=== PATIENT | female | born 1945 | race Caucasian/White ===

== ENCOUNTER 2016-10-09 10:21 | Emergency (ER) | payer OTHER ==
[~2016-10-09 10:21] MED LIST: Amiodarone 150 MG/3 ML SDV ONE; EPINEPHrine 1:10,000 1 MG/10 ML Syringe ONE; Sodium Bicarbonate 8.4% 50 MEQ/50 ML Syringe ONE
--- NOTE | 2016-10-09 11:09 | PCM.SN ---
- Free Text/Narrative Note: Davon Blue (ED) 10-09-16 Start-1027 End- 1048 Called by ED staff for a code blue at 1019. Arrived at 1027. Upon arrival the patient had the automated CPR machine in place, patent [id number] to left hand, purple deep airway from field with bilateral breath sounds by auscultation per ED physician. Rhythm check revealed PEA with pacer spiked not capturing/ correlating with rhythm. ETCO2, BP cuff, SpO2, and EKG leads placed. Patient has a pacemaker in right upper chest. Epinephrine, amiodarone, and NaHCO3 were all given prior to my arrival. 2 other rounds of Epinephrine were given while I was present and the patient did eventually regain a pulse in the 50's with a blood pressure in the 70's systolically. Pupils were fixed and dilated when the patient regained her pulse. We were informed about a DNR for the patient, so the ED physician spoke with the family after the patient regained her pulse and the family decided to terminate life-saving measures. Patient eventually started getting more bradycardic and hypotensive until a pulse was lost and time of was announced. Please refer to the code blue flow sheet for specific times of all the events. Chaka Travis CRNA
--- NOTE | 2016-10-09 13:58 | EDM.PDOC ---
ED HPI GENERAL MEDICAL PROBLEM - General Chief Complaint: CPR in Progress Stated Complaint: [facility] Time Seen by Provider: 10/09/16 10:46 Source of Information: Reports: EMS, Family History Limitations: Reports: Altered Mental Status - History of Present Illness INITIAL COMMENTS - FREE TEXT/NARRATIVE: The patient was out with her family today. She saw her grand children and went to some [place]. 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 911 was called and she was pulseless and apneac. No CPR was started. When EMS arrived a few minutes later they found she had no pulse and was not breathing. They moved her to their cot and CPR was started. The monitoring tech showed she was in PEA and an IV was started and she was given a total of 3mg of epinephrine IV and sodium bicarb. [facility] in [facility] and Dr Vazquez is her doctor. She has a history of CHF, CAD, cardiac arrhythmia with a pacemaker, chronic kidney disease, anemia, pulmonary hypertension and atrial fibrillation among other diagnoses. Onset: Sudden Duration: Minutes: Improves with: Reports: None Worsens with: Reports: None Associated Symptoms: Reports: No Other Symptoms - Related Data Allergies Allergy/AdvReac Type Severity Reaction Status Date / Time apixaban Allergy Cannot Verified 10/09/16 11:01 Remember aspirin Allergy Cannot Verified 10/09/16 11:02 Remember ibuprofen Allergy Cannot Verified 10/09/16 11:02 Remember Penicillins Allergy Cannot Verified 10/09/16 11:02 Remember Home Meds: Home Meds Acetaminophen [Tylenol] 325 mg PO Q8H PRN 08/22/15 [History] Allopurinol [Zyloprim] 100 mg PO DAILY 08/22/15 [History] Fluticasone Propionate [Flonase] 1 spray NASBOTH BID 08/22/15 [History] Cholecalciferol (Vitamin D3) [Vitamin D] 2,000 unit PO DAILY 01/04/16 [History] Citalopram [Celexa] 20 mg PO BEDTIME 01/04/16 [History] Docusate Sodium [Colace] 200 mg PO BID 01/04/16 [History] Furosemide [Lasix] 120 mg PO BID 01/04/16 [History] Gabapentin [Neurontin] 300 mg PO BEDTIME 01/04/16 [History] Insulin Glarg,Human.Rec.Analog [LantUS Solostar] 94 units SUBCUT DAILY 01/04/16 [History] Insulin Lispro [HumaLOG] 24 unit SUBCUT TIDAC 01/04/16 [History] Iron Aspgly&PS/B12/C/Ca/FA/Suc [Niferex-150 Forte] 1 cap PO DAILY 01/04/16 [ History] Metolazone 2.5 mg PO MOWEFR 01/04/16 [History] Omeprazole 40 mg PO DAILY 01/04/16 [History] Polyethylene Glycol 3350 [Purelax] 142 mg PO DAILY 01/04/16 [History] Rivaroxaban [Xarelto] 15 mg PO DAILY 01/04/16 [History] Simvastatin [Zocor] 20 mg PO BEDTIME 01/04/16 [History] SitaGLIPtin [Januvia] 50 mg PO DAILY 01/04/16 [History] Sucralfate [Carafate] 1 tab PO QIDACANDBED 01/04/16 [History] Valsartan [Diovan] 40 mg PO DAILY 01/04/16 [History] Zolpidem Tartrate [Ambien] 5 mg PO BEDTIME 01/04/16 [History] cloNIDine HCl [Catapres] 0.6 mg PO BID 01/04/16 [History] guaiFENesin/Dextromethorphan [Tussin DM Clear] 10 ml PO Q4H PRN 01/04/16 [ History] hydrALAZINE HCl [Hydralazine HCl] 100 mg PO BID 01/04/16 [History] Past Medical History HEENT History: Reports: Cataract Cardiovascular History: Reports: CAD, Cardiomyopathy, Heart Failure, High Cholesterol, Hypertension, SOB on Exertion Other Cardiovascular History: bradycardia Respiratory History: Reports: Bronchitis, Recurrent, Sleep Apnea, SOB, Other ( See Below) Other Respiratory History: wears CPAP at HS Gastrointestinal History: Reports: GERD, Hemorrhoids Genitourinary History: Reports: Renal Disease Musculoskeletal History: Reports: Back Pain, Chronic, Osteoarthritis Psychiatric History: Reports: Depression Endocrine/Metabolic History: Reports: Diabetes, Type II, Obesity/BMI 30+, Osteoporosis - Infectious Disease History Infectious Disease History: Reports: Chicken Pox, Measles, Mumps - Past Surgical History HEENT Surgical History: Reports: Cataract Surgery, Laser Surgery Musculoskeletal Surgical History: Reports: Shoulder Surgery, Other (See Below) Social & Family History - Tobacco Use Smoking Status *Q: Former Smoker Used Tobacco, but Quit: Yes Month Tobacco Last Used: 20 years - Recreational Drug Use Recreational Drug Use: No - Living Situation & Occupation Living situation: Reports: Single Occupation: Retired ED ROS GENERAL - Review of Systems Review Of Systems: Unable To Obtain ED EXAM, CPR - Physical Exam Exam: See Below Limited By: Unresponsive General Appearance: Obtunded Ears: Normal External Exam Nose: Normal Inspection Throat/Mouth: Other (Bereket airway in place) Head: Atraumatic, Normocephalic Respiratory Chest: Other (Ventilated by BVM through a bereket airway. Equal breath sounds) Cardiovascular: Pulse with Compression, CPR In Progress Neurological: Unresponsive Course - Re-Assessments/Exams Free Text/Narrative Re-Assessment/Exam: 10/09/16 14:00 The patient was in full cardio pulmonary arrest. She was in PEA with a paced rhythm. She was moved to our bed and the marisela device was put on and compressions were continued. She had a bereket airway in and she had equal breath sounds. We had a good pulse with compressions. I ordered amiodarone 300mg IV and epi every 3 to 5 minutes and sodium bicarb. At one point it appeared she was in V-fib by the time we were going to defibrillate her she went back to a PEA. We did get a pulse back with a low BP of 72 systolic. There was no purposeful movements. My staff informed me that the family and [facility] nurse said she was a DNR. I went and talked to them and told them we did get a pulse back but it did not look. They wanted me to respect her wishes of DNR. Her heart rate and blood pressure decreased until she was in asystole. She at 10:46 this morning. I talked to the family and I called Dr Ornelas out machine spring former and he released the body. 10/09/16 14:05 Critical care time is 30 minutes. Departure - Departure Time of Disposition: 14:10 Disposition: 20 Preliminary Cause of *Q: Cardiac arrest Clinical Impression: Cardiac arrest, Respiratory arrest - Discharge Information Referrals: Darren Vazquez MD [Primary Care Provider] - Forms: ED Department Discharge
== END 2016-10-09 12:16 | disposition expired ==
LOC: SUPCPDRO 10:21 → JD.ED 10:21
DX: I46.9 Cardiac arrest, cause unspecified (principal); I11.0 Hypertensive heart disease with heart failure; I50.9 Heart failure, unspecified; I25.10 Atherosclerotic heart disease of native coronary artery without angina pectoris; E78.00 Pure hypercholesterolemia, unspecified; G47.30 Sleep apnea, unspecified; K21.9 Gastro-esophageal reflux disease without esophagitis; M19.90 Unspecified osteoarthritis, unspecified site; E11.9 Type 2 diabetes mellitus without complications; E66.9 Obesity, unspecified; M81.0 Age-related osteoporosis without current pathological fracture; F32.9 Major depressive disorder, single episode, unspecified; Z98.49 Cataract extraction status, unspecified eye; Z98.890 Other specified postprocedural states; Z87.891 Personal history of nicotine dependence; Z79.4 Long term (current) use of insulin; Z79.899 Other long term (current) drug therapy; Z88.0 Allergy status to penicillin; Z88.6 Allergy status to analgesic agent; Z88.8 Allergy status to other drugs, medicaments and biological substances
CPT/HCPCS: 92950; 96374; 96375; 99291; J0171; J0282